=== PATIENT | male | born 1955 | race Caucasian/White ===

== ENCOUNTER 2023-08-11 14:53 | Inpatient (IN) | payer MEDICARE, MEDICAID ==
[2023-08-11] MEDS: Sodium Chloride 0.9% 10 ML Syringe FLUSH PRN (15:06)
[2023-08-11] MEDS: Sodium Chloride 0.9% 2.5 ML Syringe FLUSH PRN (15:06)
[2023-08-11] MEDS: Sodium Chloride 0.9% 1,000 ML IV ONE ×2 (15:06→16:32)
[2023-08-11] MEDS: Ondansetron 4 MG/2 ML SDV IVPUSH ONE (15:09)
[2023-08-11 15:28] LABS: BASOPHILS ABSOLUTE AUTO 0.08 K/uL (0.00-0.20); BASOPHILS PERCENT AUTO 1.2 % (0.0-1.0); EOSINOPHILS PERCENT AUTO 7.3 % (0.0-6.0); HEMATOCRIT 26.9 % (42.0-52.0); HEMOGLOBIN 9.1 g/dL (14.0-18.0); IMMATURE GRAN PERCENT AUTO 1.5 % (0.0-0.4); LYMPHOCYTES ABSOLUTE AUTO 1.49 K/uL (1.00-4.80); LYMPHOCYTES PERCENT AUTO 21.7 % (24.0-44.0); MEAN CORPUSCULAR HGB CONC 33.8 g/dL (32.0-36.0); MEAN CORPUSCULAR VOLUME 82.8 fL (83.0-99.0); MONOCYTES PERCENT AUTO 18.9 % (0.0-8.0); NEUTROPHILS ABSOLUTE AUTO 3.41 K/uL (1.80-7.70); NEUTROPHILS PERCENT AUTO 49.4 % (41.0-71.0); PLATELET COUNT,PLT 71 K/uL (150-400); RED BLOOD CELL COUNT 3.25 M/uL (4.52-5.90); WHITE BLOOD CELL COUNT,WBC 6.88 K/uL (3.9-11.3)
[2023-08-11 15:59] LABS: A/G RATIO 0.6 (0.9-1.6); ALBUMIN 2.4 g/dL (3.4-5.0); BILIRUBIN TOTAL 0.4 mg/dL (0.2-1.0); CALCIUM 8.5 mg/dL (8.5-10.1); CARBON DIOXIDE,CO2 24.4 mmol/L (21.0-32.0); CREATININE 1.6 mg/dL (0.8-1.3); EST CRCL DRUG DOSING (CG) 34.59 mL/min; MAGNESIUM 2.2 mg/dL (1.8-2.4); POTASSIUM,K 4.4 mmol/L (3.5-5.1); PROTEIN TOTAL,TP 6.5 g/dL (6.4-8.2)
[2023-08-11 16:04] LABS: LACTIC ACID 0.7 mmol/L (0.4-2.0)
[2023-08-11 16:53] LABS: T4 FREE 0.45 ng/dL (0.76-1.46)
[2023-08-11 17:00] LABS: T3 FREE 0.48 pg/mL (2.18-3.98)
[2023-08-11] MEDS: Midodrine 5 MG Tab PO STA (17:28)
[2023-08-11 17:45] LABS: INR 1.22 (0.86-1.11)
[2023-08-11 18:53] LABS: APPEARANCE,URINE CLEAR; BILIRUBIN,URINE NEGATIVE (NEGATIVE); COLOR,URINE YELLOW; GLUCOSE,URINE NEGATIVE (NEGATIVE); KETONES,URINE NEGATIVE (NEGATIVE); LEUKOCYTE ESTERASE,URINE NEGATIVE (NEGATIVE); NITRITE,URINE NEGATIVE (NEGATIVE); OCCULT BLOOD,URINE NEGATIVE (NEGATIVE); PROTEIN,URINE TRACE mg/dL (NEGATIVE); UROBILINOGEN,URINE 0.2 EU/dL (<2.0)
[2023-08-11 19:02] LABS: BACTERIA,URINE FEW (NEGATIVE); EPITHELIAL CELLS,URINE RARE (NONE-FEW); RBC,URINE 0-1 (0-2/HPF); WBC,URINE 0-2 (0-5/HPF)
[2023-08-11 19:07] LABS: PH,VENOUS 7.41 (7.31-7.41)
[2023-08-11] MEDS: Hydrocortisone Sodium Succinate 100 MG/2 ML SDV IVPUSH ONE (19:23)
[2023-08-11] MEDS: Levothyroxine 100 MCG Vial IVPUSH ONE (20:05)
[2023-08-11] MEDS: Sodium Chloride 0.9% 10 ML Syringe FLUSH ONE (20:14)
[2023-08-11] MEDS ORDERED: Acetaminophen 650 MG Supp RECTAL PRN (20:45)
[2023-08-11] MEDS ORDERED: Acetaminophen 325 MG Tab PO PRN (20:45)
[2023-08-11] MEDS ORDERED: Ondansetron 4 MG/2 ML SDV IVPUSH PRN (20:45)
[2023-08-11] MEDS ORDERED: Albuterol/Ipratropium 3.0-0.5 MG/3 ML Neb Soln NEB PRN (20:45)
[2023-08-11] MEDS ORDERED: Melatonin 3 MG Tab PO PRN (20:45)
[2023-08-11] MEDS: Pantoprazole 40 MG in Sodium Chloride 0.9% 10 ML IVPUSH SCH (22:29)
[2023-08-11] MEDS: Norepinephrine Bit/D5W Premix 250 ML IV SCH (23:04)
[2023-08-12 06:00] LABS: HEMATOCRIT 27.8 % (42.0-52.0); HEMOGLOBIN 9.3 g/dL (14.0-18.0); MEAN CORPUSCULAR HEMOGLOBIN 28.1 pg (28.0-32.0); MEAN CORPUSCULAR HGB CONC 33.5 g/dL (32.0-36.0); PLATELET COUNT,PLT 86 K/uL (150-400); RED BLOOD CELL COUNT 3.31 M/uL (4.52-5.90); WHITE BLOOD CELL COUNT,WBC 8.73 K/uL (3.9-11.3)
[2023-08-12 06:23] LABS: ALBUMIN 2.3 g/dL (3.4-5.0); BILIRUBIN TOTAL 0.3 mg/dL (0.2-1.0); CALCIUM 7.8 mg/dL (8.5-10.1); CARBON DIOXIDE,CO2 22.6 mmol/L (21.0-32.0); CREATININE 1.8 mg/dL (0.8-1.3); EST CRCL DRUG DOSING (CG) 34.3 mL/min; MAGNESIUM 1.9 mg/dL (1.8-2.4); PHOSPHORUS 4.2 mg/dL (2.6-4.7); POTASSIUM,K 4.4 mmol/L (3.5-5.1); PROTEIN TOTAL,TP 6.5 g/dL (6.4-8.2)
[2023-08-12 06:35] LABS: A/G RATIO 0.6 (0.9-1.6)
[2023-08-12 06:54] LABS: EOSINOPHILS ABSOLUTE MAN 0.17 K/uL (0.00-0.45); EOSINOPHILS PERCENT MAN 2 % (0-6); LYMPHOCYTES ABSOLUTE MAN 1.92 K/uL (1.00-4.80); LYMPHOCYTES PERCENT MAN 22 % (24-44); MONOCYTES ABSOLUTE MAN 0.61 K/uL (0.00-0.80); MONOCYTES PERCENT MAN 7 % (0-8); MYELOCYTE ABSOLUTE MAN 0.17; MYELOCYTE PERCENT MAN 2 %; SEG NEUTROPHILS ABSOLUTE MAN 5.76 K/uL (1.80-7.70); SEG NEUTROPHILS PERCENT MAN 66 % (41-71)
[2023-08-12 06:55] LABS: BAND ABSOLUTE MAN 0.09; BAND PERCENT MAN 1 %
[2023-08-12 08:47] LABS: T4 FREE 0.62 ng/dL (0.76-1.46); TSH ULTRASENSITIVE 71.21 uIU/mL (0.36-3.74)
[2023-08-12 08:53] LABS: T3 FREE 0.48 pg/mL (2.18-3.98)
[2023-08-12] MEDS: Midodrine 5 MG Tab PO SCH (10:38)
[2023-08-12] MEDS ORDERED: Midodrine 5 MG Tab PO SCH (12:00)
[2023-08-12] MEDS: Levothyroxine 100 MCG Vial IV SCH ×2 (12:06→19:34)
[2023-08-12] MEDS: Benzocaine/Cetylpyridinium/Menthol Lozenge MUCMEM PRN (21:38)
[2023-08-13 07:26] LABS: BASOPHILS ABSOLUTE AUTO 0.08 K/uL (0.00-0.20); BASOPHILS PERCENT AUTO 1.2 % (0.0-1.0); EOSINOPHILS ABSOLUTE AUTO 0.47 K/uL (0.00-0.45); EOSINOPHILS PERCENT AUTO 7.3 % (0.0-6.0); HEMATOCRIT 26.8 % (42.0-52.0); HEMOGLOBIN 8.9 g/dL (14.0-18.0); IMMATURE GRAN ABSOLUTE AUTO 0.13 K/uL (0.00-0.05); LYMPHOCYTES ABSOLUTE AUTO 1.47 K/uL (1.00-4.80); LYMPHOCYTES PERCENT AUTO 22.8 % (24.0-44.0); MEAN CORPUSCULAR HEMOGLOBIN 28.3 pg (28.0-32.0); MEAN CORPUSCULAR HGB CONC 33.2 g/dL (32.0-36.0); MEAN CORPUSCULAR VOLUME 85.4 fL (83.0-99.0); MEAN PLATELET VOLUME 9.3 fL (9.4-12.4); MONOCYTES ABSOLUTE AUTO 1.19 K/uL (0.00-0.80); MONOCYTES PERCENT AUTO 18.4 % (0.0-8.0); NEUTROPHILS ABSOLUTE AUTO 3.12 K/uL (1.80-7.70); NEUTROPHILS PERCENT AUTO 48.3 % (41.0-71.0); PLATELET COUNT,PLT 89 K/uL (150-400); RED BLOOD CELL COUNT 3.14 M/uL (4.52-5.90); WHITE BLOOD CELL COUNT,WBC 6.46 K/uL (3.9-11.3)
[2023-08-13] MEDS ORDERED: Levothyroxine 100 MCG Vial IV SCH (07:30)
[2023-08-13 07:56] LABS: CARBON DIOXIDE,CO2 25.4 mmol/L (21.0-32.0); EST CRCL DRUG DOSING (CG) 31.37 mL/min; MAGNESIUM 1.9 mg/dL (1.8-2.4); PHOSPHORUS 3.2 mg/dL (2.6-4.7); POTASSIUM,K 3.7 mmol/L (3.5-5.1); T4 FREE 0.59 ng/dL (0.76-1.46)
[2023-08-13 07:57] LABS: T3 FREE 0.34 pg/mL (2.18-3.98); TSH ULTRASENSITIVE 119.19 uIU/mL (0.36-3.74)
[2023-08-13] MEDS: Hydrocortisone Sodium Succinate 100 MG/2 ML SDV IV ONE (10:46)
[2023-08-14 06:15] LABS: BASOPHILS ABSOLUTE AUTO 0.04 K/uL (0.00-0.20); BASOPHILS PERCENT AUTO 0.6 % (0.0-1.0); EOSINOPHILS ABSOLUTE AUTO 0.17 K/uL (0.00-0.45); EOSINOPHILS PERCENT AUTO 2.5 % (0.0-6.0); HEMATOCRIT 24.4 % (42.0-52.0); HEMOGLOBIN 8.3 g/dL (14.0-18.0); IMMATURE GRAN ABSOLUTE AUTO 0.22 K/uL (0.00-0.05); IMMATURE GRAN PERCENT AUTO 3.2 % (0.0-0.4); LYMPHOCYTES ABSOLUTE AUTO 1.33 K/uL (1.00-4.80); LYMPHOCYTES PERCENT AUTO 19.4 % (24.0-44.0); MEAN CORPUSCULAR VOLUME 85.3 fL (83.0-99.0); MEAN PLATELET VOLUME 9.9 fL (9.4-12.4); MONOCYTES ABSOLUTE AUTO 0.64 K/uL (0.00-0.80); MONOCYTES PERCENT AUTO 9.3 % (0.0-8.0); NEUTROPHILS ABSOLUTE AUTO 4.47 K/uL (1.80-7.70); PLATELET COUNT,PLT 91 K/uL (150-400); RED BLOOD CELL COUNT 2.86 M/uL (4.52-5.90); WHITE BLOOD CELL COUNT,WBC 6.87 K/uL (3.9-11.3)
[2023-08-14 06:34] LABS: CALCIUM 7.9 mg/dL (8.5-10.1); CARBON DIOXIDE,CO2 22.8 mmol/L (21.0-32.0); CREATININE 1.7 mg/dL (0.8-1.3); EST CRCL DRUG DOSING (CG) 37.62 mL/min; MAGNESIUM 1.8 mg/dL (1.8-2.4); PHOSPHORUS 3.4 mg/dL (2.6-4.7); POTASSIUM,K 3.7 mmol/L (3.5-5.1)
[2023-08-14 08:20] LABS: T4 FREE 0.6 ng/dL (0.76-1.46)
[2023-08-14 08:21] LABS: T3 FREE 0.26 pg/mL (2.18-3.98)
[2023-08-14] MEDS: Polyethylene Glycol 3350 Powder 17 GM Packet PO PRN (12:42)
[2023-08-14] MEDS: Midodrine 5 MG Tab PO SCH (12:43)
[2023-08-14] MEDS: Midodrine 5 MG Tab ONE (12:44)
[2023-08-14] MEDS ORDERED: Midodrine 5 MG Tab PO SCH (17:00)
[2023-08-15 05:44] LABS: HEMOGLOBIN 8.9 g/dL (14.0-18.0); MEAN CORPUSCULAR HEMOGLOBIN 27.8 pg (28.0-32.0); MEAN CORPUSCULAR VOLUME 84.4 fL (83.0-99.0); MEAN PLATELET VOLUME 9.3 fL (9.4-12.4); PLATELET COUNT,PLT 112 K/uL (150-400); WHITE BLOOD CELL COUNT,WBC 7.06 K/uL (3.9-11.3)
[2023-08-15 06:10] LABS: A/G RATIO 0.5 (0.9-1.6); ALBUMIN 2.3 g/dL (3.4-5.0); BILIRUBIN TOTAL 0.3 mg/dL (0.2-1.0); CARBON DIOXIDE,CO2 25.5 mmol/L (21.0-32.0); CREATININE 1.7 mg/dL (0.8-1.3); EST CRCL DRUG DOSING (CG) 39.25 mL/min; MAGNESIUM 1.8 mg/dL (1.8-2.4); POTASSIUM,K 3.9 mmol/L (3.5-5.1); PROTEIN TOTAL,TP 6.6 g/dL (6.4-8.2)
[2023-08-15 06:28] LABS: LYMPHOCYTES ABSOLUTE MAN 1.77 K/uL (1.00-4.80); LYMPHOCYTES PERCENT MAN 25 % (24-44); SEG NEUTROPHILS ABSOLUTE MAN 3.18 K/uL (1.80-7.70); SEG NEUTROPHILS PERCENT MAN 45 % (41-71)
[2023-08-15 06:29] LABS: BASOPHILS ABSOLUTE MAN 0.21 K/uL (0.00-0.20); BASOPHILS PERCENT MAN 3 % (0-1); EOSINOPHILS ABSOLUTE MAN 0.28 K/uL (0.00-0.45); EOSINOPHILS PERCENT MAN 4 % (0-6); MONOCYTES ABSOLUTE MAN 1.62 K/uL (0.00-0.80); MONOCYTES PERCENT MAN 23 % (0-8)
[2023-08-15 08:19] LABS: T4 FREE 0.65 ng/dL (0.76-1.46); TSH ULTRASENSITIVE 98.07 uIU/mL (0.36-3.74)
[2023-08-15 08:38] LABS: T3 FREE 0.46 pg/mL (2.18-3.98)
[2023-08-15] MEDS: Lactulose Soln 10 GM/15 ML 15 ML UD Cup PO ONE (09:17)
[2023-08-15] MEDS: Levothyroxine 100 MCG Vial IV SCH (14:45)
[2023-08-16 05:56] LABS: HEMOGLOBIN 8.6 g/dL (14.0-18.0); MEAN CORPUSCULAR HEMOGLOBIN 28.2 pg (28.0-32.0); MEAN CORPUSCULAR HGB CONC 33.1 g/dL (32.0-36.0); MEAN CORPUSCULAR VOLUME 85.2 fL (83.0-99.0); PLATELET COUNT,PLT 95 K/uL (150-400); RED BLOOD CELL COUNT 3.05 M/uL (4.52-5.90); WHITE BLOOD CELL COUNT,WBC 7.07 K/uL (3.9-11.3)
[2023-08-16 06:31] LABS: SEG NEUTROPHILS ABSOLUTE MAN 2.83 K/uL (1.80-7.70); SEG NEUTROPHILS PERCENT MAN 40 % (41-71)
[2023-08-16 06:32] LABS: A/G RATIO 0.6 (0.9-1.6); ALBUMIN 2.3 g/dL (3.4-5.0); BASOPHILS ABSOLUTE MAN 0.21 K/uL (0.00-0.20); BASOPHILS PERCENT MAN 3 % (0-1); BILIRUBIN TOTAL 0.3 mg/dL (0.2-1.0); CALCIUM 8.1 mg/dL (8.5-10.1); CARBON DIOXIDE,CO2 25.8 mmol/L (21.0-32.0); CREATININE 1.7 mg/dL (0.8-1.3); EOSINOPHILS ABSOLUTE MAN 0.64 K/uL (0.00-0.45); EOSINOPHILS PERCENT MAN 9 % (0-6); EST CRCL DRUG DOSING (CG) 37.62 mL/min; LYMPHOCYTES ABSOLUTE MAN 1.63 K/uL (1.00-4.80); LYMPHOCYTES PERCENT MAN 23 % (24-44); MONOCYTES ABSOLUTE MAN 1.77 K/uL (0.00-0.80); MONOCYTES PERCENT MAN 25 % (0-8); POTASSIUM,K 4.3 mmol/L (3.5-5.1); PROTEIN TOTAL,TP 6.3 g/dL (6.4-8.2)
[2023-08-16 06:41] LABS: T3 FREE 0.69 pg/mL (2.18-3.98); T4 FREE 0.76 ng/dL (0.76-1.46)
[2023-08-17 05:49] LABS: HEMATOCRIT 24.7 % (42.0-52.0); HEMOGLOBIN 8.2 g/dL (14.0-18.0); MEAN CORPUSCULAR HGB CONC 33.2 g/dL (32.0-36.0); MEAN CORPUSCULAR VOLUME 84.3 fL (83.0-99.0); PLATELET COUNT,PLT 73 K/uL (150-400); RED BLOOD CELL COUNT 2.93 M/uL (4.52-5.90); WHITE BLOOD CELL COUNT,WBC 6.25 K/uL (3.9-11.3)
[2023-08-17 06:21] LABS: A/G RATIO 0.6 (0.9-1.6); ALBUMIN 2.2 g/dL (3.4-5.0); BILIRUBIN TOTAL 0.4 mg/dL (0.2-1.0); CALCIUM 8.1 mg/dL (8.5-10.1); CARBON DIOXIDE,CO2 24.9 mmol/L (21.0-32.0); CREATININE 1.6 mg/dL (0.8-1.3); EST CRCL DRUG DOSING (CG) 39.97 mL/min; POTASSIUM,K 3.8 mmol/L (3.5-5.1); PROTEIN TOTAL,TP 6.2 g/dL (6.4-8.2)
[2023-08-17 06:32] LABS: BASOPHILS ABSOLUTE MAN 0.25 K/uL (0.00-0.20); BASOPHILS PERCENT MAN 4 % (0-1); EOSINOPHILS ABSOLUTE MAN 0.25 K/uL (0.00-0.45); EOSINOPHILS PERCENT MAN 4 % (0-6); LYMPHOCYTES ABSOLUTE MAN 1.88 K/uL (1.00-4.80); LYMPHOCYTES PERCENT MAN 30 % (24-44); MONOCYTES ABSOLUTE MAN 1.63 K/uL (0.00-0.80); MONOCYTES PERCENT MAN 26 % (0-8); SEG NEUTROPHILS ABSOLUTE MAN 2.25 K/uL (1.80-7.70); SEG NEUTROPHILS PERCENT MAN 36 % (41-71); T4 FREE 0.76 ng/dL (0.76-1.46)
[2023-08-17 06:34] LABS: T3 FREE 0.45 pg/mL (2.18-3.98)
[2023-08-17] MEDS: Levothyroxine 125 MCG Tab PO SCH (06:37)
[2023-08-18 05:07] LABS: TSH RECEPTOR AB <1.10 IU/L (<=1.75)
[2023-08-18] MEDS: Pantoprazole 40 MG Tab.CR PO SCH (06:39)
[2023-08-18 11:27] VITALS: BP 93/51; PULSE 68
== END 2023-08-18 13:30 | disposition home health service (06) | DRG 81 ==
LOC: MW.ED 14:53 → MW.ICU 19:03 → MW.MS 08-16 10:34
PROVIDERS: ADMIT Family Medicine; ATTEND Family Medicine
DX: I95.9 Hypotension, unspecified (principal); C34.90 Malignant neoplasm of unspecified part of unspecified bronchus or lung; E03.5 Myxedema coma; R18.8 Other ascites; Z66 Do not resuscitate; D64.9 Anemia, unspecified; D69.59 Other secondary thrombocytopenia; Z79.890 Hormone replacement therapy; Z85.118 Personal history of other malignant neoplasm of bronchus and lung; Z88.0 Allergy status to penicillin
CPT/HCPCS: 36415; 71045; 80053; 80061; 81001; 82550; 82803; 83605; 83735; 84439; 84443; 84481; 85025; 85610; 93005; 96360; 96361; 99285; A9270; J3490; J7030 ×2; 76775; 76775-26; 80048; 82533; 83520; 84100; 93010; 97110-GP; 97162-GP; 97530-GP; C9113; J1720

== ENCOUNTER 2023-08-22 16:23 | Emergency (ER) | payer MEDICARE, MEDICAID ==
[2023-08-22 16:58] LABS: HEMATOCRIT 30.4 % (42.0-52.0); HEMOGLOBIN 10.2 g/dL (14.0-18.0); MEAN CORPUSCULAR HEMOGLOBIN 28.5 pg (28.0-32.0); MEAN CORPUSCULAR HGB CONC 33.6 g/dL (32.0-36.0); MEAN CORPUSCULAR VOLUME 84.9 fL (83.0-99.0); PLATELET COUNT,PLT 99 K/uL (150-400); RED BLOOD CELL COUNT 3.58 M/uL (4.52-5.90); WHITE BLOOD CELL COUNT,WBC 7.48 K/uL (3.9-11.3)
[2023-08-22 17:11] LABS: INR 1.17 (0.86-1.11)
[2023-08-22 17:29] LABS: A/G RATIO 0.6 (0.9-1.6); ALBUMIN 2.5 g/dL (3.4-5.0); BILIRUBIN TOTAL 0.5 mg/dL (0.2-1.0); CARBON DIOXIDE,CO2 26.7 mmol/L (21.0-32.0); CREATININE 1.6 mg/dL (0.8-1.3); EST CRCL DRUG DOSING (CG) 45.36 mL/min; POTASSIUM,K 3.3 mmol/L (3.5-5.1)
[2023-08-22 17:32] LABS: BAND ABSOLUTE MAN 0.07; BAND PERCENT MAN 1 %; BASOPHILS ABSOLUTE MAN 0.22 K/uL (0.00-0.20); BASOPHILS PERCENT MAN 3 % (0-1); EOSINOPHILS ABSOLUTE MAN 0.75 K/uL (0.00-0.45); EOSINOPHILS PERCENT MAN 10 % (0-6); LYMPHOCYTES ABSOLUTE MAN 2.47 K/uL (1.00-4.80); LYMPHOCYTES PERCENT MAN 33 % (24-44); MONOCYTES PERCENT MAN 12 % (0-8); SEG NEUTROPHILS ABSOLUTE MAN 3.07 K/uL (1.80-7.70); SEG NEUTROPHILS PERCENT MAN 41 % (41-71)
[2023-08-22 17:39] LABS: ETHANOL BLOOD MEDICAL < 3.0 mg/dL; T3 FREE 0.62 pg/mL (2.18-3.98); T4 FREE 0.69 ng/dL (0.76-1.46); TSH ULTRASENSITIVE 92.26 uIU/mL (0.36-3.74)
[2023-08-22] MEDS ORDERED: STERILE IVPUSH STA (17:50)
[2023-08-22] MEDS ORDERED: LEVOTHYROXINE IVPUSH STA (17:50)
[2023-08-22] MEDS ORDERED: WATER FOR INJECTION IVPUSH STA (17:50)
[2023-08-22] MEDS: STERILE IVPUSH STA (18:17)
[2023-08-22] MEDS: LEVOTHYROXINE IVPUSH STA (18:17)
[2023-08-22] MEDS: WATER FOR INJECTION IVPUSH STA (18:17)
[2023-08-22 18:52] LABS: APPEARANCE,URINE CLEAR; BILIRUBIN,URINE NEGATIVE (NEGATIVE); COLOR,URINE YELLOW; GLUCOSE,URINE NEGATIVE (NEGATIVE); KETONES,URINE NEGATIVE (NEGATIVE); LEUKOCYTE ESTERASE,URINE NEGATIVE (NEGATIVE); NITRITE,URINE NEGATIVE (NEGATIVE); OCCULT BLOOD,URINE NEGATIVE (NEGATIVE); PROTEIN,URINE TRACE mg/dL (NEGATIVE); UROBILINOGEN,URINE 0.2 EU/dL (<2.0)
[2023-08-22 19:06] LABS: BACTERIA,URINE FEW (NEGATIVE); EPITHELIAL CELLS,URINE FEW (NONE-FEW); RBC,URINE 0-1 (0-2/HPF)
[2023-08-23 00:37] VITALS: BP 111/82; PULSE 81
== END 2023-08-23 00:40 ==
LOC: MW.ED 16:23
DX: D69.6 Thrombocytopenia, unspecified (principal); E03.9 Hypothyroidism, unspecified; N18.31 Chronic kidney disease, stage 3a; D63.1 Anemia in chronic kidney disease; R62.7 Adult failure to thrive; Z88.0 Allergy status to penicillin; Z79.899 Other long term (current) drug therapy
CPT/HCPCS: 36415; 70450; 70450-26; 72125; 72125-26; 80053; 80307; 81001; 83690; 83735; 84439; 84443; 84481; 84484; 85025; 85610; 93005; 93010; 96374; 99285; 99285-25; J3490